=== PATIENT | male | born 1990 | race Caucasian/White ===

== ENCOUNTER 2020-05-10 14:58 | Emergency (ER) | payer MEDICAID ==
[~2020-05-10] VITALS: Ht 180.3 cm; Wt 57.0 kg
[2020-05-10 15:42] VITALS: BP 133/86
--- NOTE | 2020-05-10 17:11 | NUR ---
AT BEDSIDE FOR ED EVAL.
== END 2020-05-10 17:39 | disposition home or self-care (01) ==
LOC: ED 16:01
DX: S01.312A Laceration without foreign body of left ear, initial encounter (principal); X58.XXXA Exposure to other specified factors, initial encounter; Y93.89 Activity, other specified; Y92.89 Other specified places as the place of occurrence of the external cause; Y99.8 Other external cause status
CPT/HCPCS: 99281

== ENCOUNTER 2020-06-18 09:59 | Emergency (ER) | payer MEDICAID ==
[~2020-06-18] VITALS: Ht 180.3 cm; Wt 57.0 kg
[2020-06-18] MEDS ORDERED: OXYcodone/APAP 5/325MG TABLET PO ONE (10:30)
[2020-06-18] MEDS ORDERED: LIDOCAINE-MPF 1%, 5ML INFIL ONE (10:30)
[2020-06-18] MEDS ORDERED: LIDOCAINE-MPF 1%, 5ML ONE (10:38)
[2020-06-18] MEDS ORDERED: CLINDAMYCIN PMX 600MG/50ML 50 ML ONE (10:49)
[2020-06-18] MEDS ORDERED: SODIUM CHLORIDE FLUSH 10ML SYR IVF ONE (11:00)
[2020-06-18] MEDS ORDERED: CLINDAMYCIN PMX 600MG/50ML 50 ML IV ONE (11:00)
[2020-06-18 11:06] LABS: BASOPHILS % (AUTO) 1 % (0-1); EOSINOPHILS % (AUTO) 1 % (1-7); LYMPHOCYTES % (AUTO) 19 % (22-44); MD NO; MEAN CORPUSCULAR HEMOGLOBIN 25.8 pg (27.5-34.5); MEAN CORPUSCULAR HGB CONC 32.5 g/dL (33.2-36.2); MEAN PLATELET VOLUME 6.8 fL (7.4-10.4); MONOCYTES % (AUTO) 9 % (2-9); NEUTROPHILS % (AUTO) 70 % (42-75); PLATELET COUNT 501 x10^3/uL (130-400); RED BLOOD COUNT 4.99 x10^6/uL (4.38-5.82)
--- NOTE | 2020-06-18 11:11 | NUR ---
I&D COMPLETED BY JENNIFER BALLARD. IV PLACED, 2ND BC DRAWN WITH START. IV ANTIBIOTIC INFUSING PER ERP ORDER. CALL LIGHT WITHIN REACH. AWATING LAB RESULTS. PT REQUESTING HIV TESTING, THIS COMMUNICATED TO ERP.
[2020-06-18 11:13] LABS: ALBUMIN 2.9 g/dL (3.4-5.0); ANION GAP 4 mmol/L (5-15); CALCIUM 8.7 mg/dL (8.5-10.1); CHLORIDE 106 mmol/L (98-107); CREATININE 0.45 mg/dL (0.7-1.3)
--- NOTE | 2020-06-18 12:18 | NUR ---
CALL TO LAB TO VERIFY ADD ON HIV LAB. PER RISK MANAGEMENT INTERN, LAB SHOULD RESULT BY [id number]. PT SLEEPING, NAD. CALL LIGHT WITHIN REACH.
[2020-06-18 12:52] VITALS: BP 132/68
== END 2020-06-18 13:01 | disposition home or self-care (01) ==
LOC: ED 10:35
DX: L02.413 Cutaneous abscess of right upper limb (principal)
CPT/HCPCS: 10060; 36415; 80048; 82040; 83605; 85025; 87040; 87806; 96365; 99284; G0475